=== PATIENT | male | born 1995 | race Two or more races ===

== ENCOUNTER 2023-03-04 20:44 | Emergency (ER) | payer OTHER ==
[~2023-03-04] VITALS: Ht 180.3 cm; Wt 106.6 kg
[2023-03-04 23:40] LABS: HEMATOCRIT 44.4 % (39.0-48.0); HEMOGLOBIN 15.5 g/dL (13-16.00); MEAN CELL VOLUME 84.4 fL (80.0-100.00); MEAN CORPUSCULAR HEMOGLOBIN 29.5 pg (27.00-32.0); PLATELET COUNT 274 K/uL (150-450); RED BLOOD COUNT 5.26 M/uL (4.00-6.00)
[2023-03-04 23:58] LABS: ALBUMIN 3.9 gm/dL (3.4-5.0); BILIRUBIN TOTAL 0.63 mg/dL (0.3-1.2); CALCIUM 9.1 mg/dL (8.5-10.1); CREATININE SERUM 0.98 mg/dL (0.70-1.30); GFR 91.75; GLOBULINA 3.9 G/DL (2.4-3.5); POTASSIUM 3.85 mEq/L (3.5-5.1); TOTAL PROTEIN 7.8 gm/dL (6.4-8.2)
== END 2023-03-05 02:51 | disposition home or self-care (01) ==
LOC: ER 20:44
PROVIDERS: General Practice
DX: K59.1 Functional diarrhea (principal)